=== PATIENT | male | born 2000 | race Caucasian/White ===

== ENCOUNTER 2019-08-28 17:33 | Emergency (ER) | payer MEDICAID ==
[~2019-08-28] VITALS: Ht 188 cm; Wt 90.0 kg
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
--- NOTE | 2019-08-28 17:49 | NUR ---
Received patient, changed. Padilla (trigger sister lately) Suki (sister)
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
[2019-08-28 19:13] LABS: BASOPHILS # (AUTO) 0.1 X10'3 (0-0.2); BASOPHILS % (AUTO) 0.7 % (0-1); EOSINOPHILS # (AUTO) 0.1 X10'3 (0-0.9); EOSINOPHILS % (AUTO) 0.9 % (0-6); HEMATOCRIT 49.5 % (42.0-52.0); HEMOGLOBIN 16.7 g/dl (14.0-17.9); LYMPHOCYTES # (AUTO) 1.7 X10'3 (1.1-4.8); LYMPHOCYTES % (AUTO) 18.8 % (21-51); MEAN CORPUSCULAR HEMOGLOBIN 29.8 PG (27.0-31.0); MEAN CORPUSCULAR HGB CONC 33.8 g/dL (33.0-36.5); MEAN CORPUSCULAR VOLUME 88.2 FL (78-98); MEAN PLATELET VOLUME 7.2 FL (7.4-10.4); MONOCYTES # (AUTO) 0.8 X10'3 (0-0.9); MONOCYTES % (AUTO) 9.2 % (2-12); NEUTROPHILS # (AUTO) 6.5 X10'3 (1.8-7.7); NEUTROPHILS % (AUTO) 70.4 % (42-75); PLATELET COUNT 308 X10'3 (140-440); RED BLOOD COUNT 5.62 X10'6 (4.70-6.10); RED CELL DISTRIBUTION WIDTH 13.7 % (11.5-14.5); WHITE BLOOD COUNT 9.2 X10'3 (4.5-11.0)
[2019-08-28 19:25] LABS: ALANINE AMINOTRANSFERASE 39 U/L (12-78); ALBUMIN 4.5 G/DL (3.4-5.0); ALBUMIN/GLOBULIN RATIO 1.3 (1.1-1.5); ALKALINE PHOSPHATASE 68 IU/L (20-180); ANION GAP 10 (8-16); ASPARTATE AMINO TRANSFERASE 22 U/L (10-37); BILIRUBIN,TOTAL 0.8 MG/DL (0.1-1.0); BLOOD UREA NITROGEN 10 MG/DL (7-18); BUN/CREATININE RATIO 7.4 (5.4-32.0); CALCIUM 9.2 MG/DL (8.5-10.1); CHLORIDE 104 MMOL/L (99-107); CREATININE 1.35 MG/DL (0.60-1.10); ETHANOL < 0.010 GM/DL (0.0-0.010); GLUCOSE 148 MG/DL (70-104); POTASSIUM 3.9 MMOL/L (3.5-5.1); SODIUM 140 MMOL/L (135-145); TOTAL CARBON DIOXIDE 25.6 MMOL/L (24-32); eGFR 67 ML/MIN
[2019-08-28 19:30] LABS: URINE AMPHETAMINE SCREEN NEGATIVE (Neg); URINE BARBITUATE SCREEN NEGATIVE (Neg); URINE BENZODIAZEPINES SCREEN NEGATIVE (Neg); URINE CANNABINOID SCREEN NEGATIVE (Neg); URINE COCAINE SCREEN NEGATIVE (Neg); URINE METHADONE SCREEN NEGATIVE (Neg); URINE OPIATE SCREEN NEGATIVE (Neg); URINE PHENCYCLIDINE SCREEN NEGATIVE (Neg)
[2019-08-28] MEDS ORDERED: OLANZapine 5mg rapidly disint. tablet PO ONE (19:40)
[2019-08-28] MEDS ORDERED: LORazepam 1 MG tablet PO ONE (19:40)
--- NOTE | 2019-08-28 20:16 | NUR ---
Pt packet faxed to [facility].
--- NOTE | 2019-08-28 21:02 | NUR ---
The patient is resting on his bed. [facility] assessment is pending.
--- NOTE | 2019-08-28 21:09 | NUR ---
The patient's sister, Tracey, who lives here in [place] is wanting to talk with [facility] once he is evalated [phone]
--- NOTE | 2019-08-28 21:43 | NUR ---
[facility] is here to see the patient. Report given to bee worker.
--- NOTE | 2019-08-28 23:46 | NUR ---
The patient appears to be sleeping
--- NOTE | 2019-08-29 02:53 | NUR ---
The patient appears to be sleeping
--- NOTE | 2019-08-29 05:35 | NUR ---
The patient appears to be sleeping
--- NOTE | 2019-08-29 06:30 | NUR ---
pt is sleeping. no concerns at this time
--- NOTE | 2019-08-29 07:30 | NUR ---
5312 family called for update. sister would like to be called if pt goes up to [facility]. pt is from out of town so he will need a ride upon dc
--- NOTE | 2019-08-29 08:30 | NUR ---
pt woke up and ambulated to the bathroom. no concerns at this time
--- NOTE | 2019-08-29 09:30 | NUR ---
pt is resting. no issues at this time
--- NOTE | 2019-08-29 10:20 | NUR ---
pt is sleeping
--- NOTE | 2019-08-29 11:30 | NUR ---
pt is restless. asking when he is leaving and if he can transfer to [facility]. pt called Derian and is feeling better about staying here now
[2019-08-29] MEDS ORDERED: LORazepam 1 MG tablet PO ONE ×2 (12:00→22:25)
--- NOTE | 2019-08-29 12:00 | NUR ---
Spoke to Dr. Muhammad regarding patients need for 2 mg PO ativan PRN for anxiety and agitation, at which patient states that he takes medication at home. Per Agata RN patient is restless, pacing and anxious, stating that he wants to go and that he's going to leave and go to [facility]. Dr. Muhammad stated that she would give Ativan 1 mg PO one time dose now. Will place order and Agata HAINES aware of new order.
--- NOTE | 2019-08-29 13:00 | NUR ---
pt is sleeping
--- NOTE | 2019-08-29 14:25 | NUR ---
pt is laying in the bed on the right side
--- NOTE | 2019-08-29 15:00 | NUR ---
pt called family
[2019-08-29] MEDS ORDERED: acetaminophen 325mg tablet PO ONE (15:35)
--- NOTE | 2019-08-29 16:00 | NUR ---
pt is resting
[2019-08-29] MEDS: hydrOXYzine 25 MG tablet PO PRN ×2 (16:13→18:36)
--- NOTE | 2019-08-29 17:10 | NUR ---
pt is walking around the unit
--- NOTE | 2019-08-29 17:56 | NUR ---
pt is resting in his room.
--- NOTE | 2019-08-29 19:05 | NUR ---
PT SITTING UP IN BED; FINISHED DINNER. HAS BEEN UP AND DOWN; APPEARS TO BE RESTLESS BUT NOT VIOLENT. PT UPDATED ON PLAN OF CARE- VERBALIZED UNDERSTANDING. PT TO HAVE EVAL FROM [facility] MD TOMORROW.
--- NOTE | 2019-08-29 20:29 | NUR ---
PT REQUESTING TO GO OUTSIDE; RN REPLIES THAT HE CANNOT. PT UNDERSTANDS & VERBALIZES UNDERSTANDING OF THIS RULE. PT ON THE PHONE AT RN DESK. HE IS TALKING WITH HIS FATHER. HE STATES THAT "HE IS FINE- HE IS DOING GREAT" TO HIS FATHER. WILL CONTINUE TO MONITOR.
--- NOTE | 2019-08-29 20:42 | NUR ---
PT RESTLESS AND WANTING TO WATCH A MOVIE. TV SET UP IN FRONT OF HIS BED- PT IN BED AND NOT IN ANY DISTRESS OF DISCOMFORT. WILL CONT TO MONITOR.
--- NOTE | 2019-08-29 21:45 | NUR ---
PT'S SISTER JIM CALLED FOR UPDATE. PT HAD ORIGINALLY SAID SHE WOULD NOT BE ALLOWED TO BE UPDATED THEN CHANGED HIS MIND AND WANTED TO SPEAK WITH HER. INFORMED PT THAT VISITNG HOURS, INCLUDING PHONE VISITS WAS OVER. PT THEN SAID SHE COULD RECEIVE INFORMATION FROM RN. RN UPDATED SISTER. AFTER GETTING OFF OF PHONE WITH JIM PT TOLD RN THAT ONLY ATA, KRYSTYNA AND FATHER COULD GET INFO FROM HERE ON OUT. PT'S FATHER/ JOHN IS ABLE TO RECEIVE INFO .
--- NOTE | 2019-08-29 22:15 | NUR ---
PT CONTINUES TO BE RESTLESS AND UNABLE TO SLEEP. ED MD UPDATED- VERBAL ORDER FOR ATIVAN 1MG GIVEN; WILL ORDER AND ADMINISTER. WILL CONT TO MONITOR.
--- NOTE | 2019-08-29 23:53 | NUR ---
PT RESTING WITH EYES CLOSED. BREATHING WNL AND NO SIGNS OF DISTRESS OR DISCOMFORT. WILL CONT TO MONITOR.
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
[2019-08-30] MEDS: hydrOXYzine 25 MG tablet PO PRN ×2 (00:32→09:14)
[2019-08-30] MEDS ORDERED: OLANZapine 2.5MG tablet PO STA (00:48)
--- NOTE | 2019-08-30 00:56 | NUR ---
PT HAVING INCREASED AGITATION AND RESTLESSNESS. RN UPDATED ED MD [place]; GAVE VERBAL ORDER FOR ZYPREXA 10MG PO OR IM- [facility] PT REQUESTED. PO MEDS REQUESTED BUT PT PREFERS TO TAKE 5MG AND SEE IF IT IS EFFECTIVE. RN OK WITH THIS AND WILL CONTINUE TO MONITOR PT'S AGITATION/RESTLESSNESS AND ADMINISTER OTHER 5MG IF NEEDED.
--- NOTE | 2019-08-30 01:01 | NUR ---
PT DECIDED TO TAKE REST OF ZYPREXA DOSE. RN WILL CONT TO MONITOR.
--- NOTE | 2019-08-30 02:30 | NUR ---
PT RESTING IN BED; DOES NOT APPEAR TO BE IN ANY DISTRESS OR DISCOMFORT. RN WILL CONT TO MONITOR.
--- NOTE | 2019-08-30 04:20 | NUR ---
PT SLEEPING WITH NO SIGNS OF DISTRESS OR DISCOMFORT. RN WILL CONTINUE TO MONITOR.
--- NOTE | 2019-08-30 05:48 | NUR ---
PT CONTINUES TO SLEEP WITH NO SIGNS OF DISTRESS OR DISCOMFORT. RN WILL CONT TO MONITOR.
[2019-08-30 06:06] VITALS: BP 128/58
[2019-08-30] MEDS ORDERED: olanzapine 10mg tablet PO SCH (08:00)
[2019-08-30] MEDS ORDERED: OLANZapine 2.5MG tablet PO SCH (08:00)
--- NOTE | 2019-08-30 08:11 | NUR ---
PT UP TO BATHROOM AND AMBULATING AROUND DEPARTMENT, VISITING WITH PT NEXT TO HIM.
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
--- NOTE | 2019-08-30 09:57 | NUR ---
PT ASKED WHEN WILL [facility] [employer] STAFF OFFICER WILL COME TO TALK TO HIM ,"WILL IT BE BEFORE MIDNIGHT" ? INFORMED THE PT THAT WE DO NOT KNOW YET .PT SAID "ITS ALRIGHT I TRUST YOU GUYS NO WORRIES I CAN WAIT"
--- NOTE | 2019-08-30 10:21 | NUR ---
pt requested to talk to his brother in law evy at [phone].pt lft message for him,pt up and using restroom .
--- NOTE | 2019-08-30 11:05 | NUR ---
pt asked for lunch informed its not be here untill 1300 pm.pt given snacks to eat.pt is happy about it and said thank you and went back to bed.
--- NOTE | 2019-08-30 11:20 | NUR ---
pt talking to me about how he wants to move here to attend [employer] with his sister and brother in law. How he believes it will help his "issues" be starting the judaism.
--- NOTE | 2019-08-30 11:23 | NUR ---
.offered the pt if he likes to draw,pt stated that he would love to color,given colors to the pt ,pt is sitting on edge of the bed coloring
--- NOTE | 2019-08-30 12:05 | NUR ---
Pt asked if he could get something to help him sleep after lunch. Pt states that even if it is Tylenol or Ibuprofen because his back is hurting him.
--- NOTE | 2019-08-30 12:33 | NUR ---
recevied call from [facility] as they are ready for the pt ,pt information given,notified which all medication pt has recevied.
--- NOTE | 2019-08-30 12:45 | NUR ---
was looking for dr minaya to ask him abt the order of tylenol for pt as he is c/o back pain ,as per ruthy gimenez order 650 mg tylenol po once.will follow the orders.
[2019-08-30] MEDS ORDERED: acetaminophen 325mg tablet PO ONE (13:10)
--- NOTE | 2019-08-30 13:27 | NUR ---
pt up in bed eating his lunch,pt tylenol admin to pt for back pain with food,pt denies any other concern,will cont to monitor.
== END 2019-08-30 13:53 ==
LOC: ER 17:35
DX: S60.511A Abrasion of right hand, initial encounter (principal); F30.9 Manic episode, unspecified; X83.8XXA Intentional self-harm by other specified means, initial encounter; Y93.89 Activity, other specified; Y92.89 Other specified places as the place of occurrence of the external cause; Y99.8 Other external cause status
CPT/HCPCS: 36415; 80053; 80305; 80320; 85025; 99285; Q0177